=== PATIENT | female | born 2000 | race Caucasian/White ===

== ENCOUNTER 2024-09-15 05:36 | Inpatient (IN) | payer OTHER ==
[~2024-09-15] VITALS: Ht 167.6 cm; Wt 3.6 kg
[2024-09-15] VITALS (7 sets, daily range): BP systolic 111–131; BP diastolic 63–80
[2024-09-15] MEDS ORDERED: FE C TABLET1 EACH PO (06:32)
[2024-09-15] MEDS ORDERED: PRENATABS RX T1 EACH PO (06:32)
[2024-09-15 07:04] LABS: BASO % 0.3 % (0.1-1.2); EOS # 0.15 (0.04-0.54); EOS % 1.4 % (0.7-7.0); LYMPH # 1.74 (1.18-3.74); LYMPH % 16.4 % (19.3-53.1); MEAN PLATELET VOLUME 9.50 fl (9.4-12.4); MONO # 0.94 (0.24-0.82); MONO % 8.8 % (4.7-12.5); NEUT # 7.65 (1.56-6.13); NEUT % 72.0 % (34.0-71.1); RED CELL DISTRIBUTION WIDTH 13.9 % (11.6-14.4)
[2024-09-15 07:07] LABS: URINE APPEARANCE Clear; URINE BILIRRUBIN Negative (NEGATIVE); URINE BLOOD Negative; URINE COLOR Yellow; URINE KETONE Negative (NEGATIVE); URINE LEUKOCYTE Small; URINE NITRATE Negative; URINE PROTEIN Negative (NEGATIVE)
[2024-09-15 07:11] LABS: URINE BACTERIA 9557.9 uL (0.0-1933); URINE EPITHELIAL CELLS 43.5 uL (0.0-38.8); URINE RBC 7.6 uL (0.0-20.8); URINE WBC 213.5 uL (0.0-23.2)
[2024-09-15 07:36] LABS: INR 0.94
[2024-09-15 07:38] LABS: URINE UROBILINOGEN 1.0 E.U./dl
[2024-09-15 07:54] LABS: URINE CAST 1.17 uL (0.0-1.40); URINE GLUCOSE 100 MG/DL (NEGATIVE)
[2024-09-15 07:56] LABS: URINE CRYSTALS FEW /HPF
[2024-09-15 08:00] LABS: ALT/SGPT 18.0 U/L (12-78); AST/SGOT 21.0 U/L (15-37); BILIRUBIN TOTAL 0.24 mg/dL (0.3-1.2); BUN CREA RATIO 22.0 (7.0-25.0); CREATININE SERUM 0.45 mg/dL (0.55-1.02); GFR 171.18; GLOBULINA 3.2 G/DL (2.4-3.5); GLUCOSE FASTING 137.0 mg/dL (65-100); OSMOLALITY SERUM 284.0 MOSM/KG (275-295)
[2024-09-15] MEDS ORDERED: MISOPROSTOL 25 MCG/4 ML GEL.W.APPL VAG ONE ×2 (09:00→15:00)
[2024-09-15] MEDS ORDERED: OXYTOCIN 500 ML IV SCH (17:15)
[2024-09-15] MEDS ORDERED: MORPHINE SULFATE 4 MG/ML VIAL IV ONE (20:30)
[2024-09-16] MEDS ORDERED: ONDANSETRON HCL 2 MG/ML VIAL IV ONE (02:30)
[2024-09-16] MEDS ORDERED: MORPHINE SULFATE 4 MG/ML VIAL IV PRN (02:30)
[2024-09-16 03:42] VITALS: BP 108/62
[2024-09-16] MEDS ORDERED: CEFAZOLIN SODIUM 1,000 MG VIAL IV SCH (06:30)
[2024-09-16] MEDS ORDERED: KETOROLAC TROMETHAMINE 60 MG VIAL IM ONE ×2 (08:15→11:35)
[2024-09-16] MEDS ORDERED: MORPHINE SULFATE 4 MG/ML CARTRIDGE IV SCH (09:00)
[2024-09-16] MEDS ORDERED: DOCUSATE SODIUM 100MG CAP PO SCH (09:00)
[2024-09-16] MEDS ORDERED: SIMETHICONE 125 MG CAPSULE PO SCH (09:00)
[2024-09-16] MEDS ORDERED: OXYTOCIN 20 UNITS/1000ML RL PIGGYBAG IV ONE (09:15)
[2024-09-16] MEDS ORDERED: ERYTHROMYCIN BASE OPHT 1GM EACH TUBE OP ONE (09:15)
[2024-09-16] MEDS ORDERED: MORPHINE SULFATE 4 MG/ML VIAL IV ONE ×2 (09:55→10:25)
[2024-09-16 12:15] VITALS: BP 110/67
[2024-09-16 12:49] LABS: BASO % 0.1 % (0.1-1.2); EOS # 0.00 (0.04-0.54); EOS % 0.0 % (0.7-7.0); LYMPH # 1.16 (1.18-3.74); LYMPH % 6.2 % (19.3-53.1); MEAN PLATELET VOLUME 9.30 fl (9.4-12.4); MONO # 1.39 (0.24-0.82); MONO % 7.5 % (4.7-12.5); NEUT # 15.91 (1.56-6.13); NEUT % 85.6 % (34.0-71.1); RED CELL DISTRIBUTION WIDTH 14.0 % (11.6-14.4)
[2024-09-16 17:07] VITALS: BP 108/62
[2024-09-16] MEDS ORDERED: OxyCODONE HCL 5 MG TABLET (ROXICODONE) PO SCH (20:00)
[2024-09-16 23:57] VITALS: BP 108/72
[2024-09-17 08:36] VITALS: BP 109/74
[2024-09-17] MEDS ORDERED: PNV,CALCIUM 72/IRON/FOLIC ACID 1 TAB TABLET PO SCH (11:41)
[2024-09-17] MEDS ORDERED: KETOROLAC TROMETHAMINE 10 MG TABLET PO SCH (12:00)
[2024-09-17] MEDS ORDERED: ACETAMINOPHEN 325 MG TABLET PO SCH (14:00)
[2024-09-17 16:00] VITALS: BP 126/80
[2024-09-18] VITALS: BP 105/68
[2024-09-18 08:54] VITALS: BP 100/66
[2024-09-18] MEDS ORDERED: SODIUM CL 0.9% 25 ML IV.SOLN. IV PUSH SCH (11:15)
[2024-09-18] MEDS ORDERED: BUTALB-ACETAMI1 EACH PO (15:49)
[2024-09-18 16:00] VITALS: BP 115/78
== END 2024-09-18 17:29 | disposition home or self-care (01) | DRG 788 ==
LOC: LDR 05:36 → O/R 09-16 07:28 → OB/GYN 09-16 10:42
PROVIDERS: ADMIT Specialist; ATTEND Specialist
PROC: 4A1HXCZ Monitoring of Products of Conception, Cardiac Rate, External Approach (ICD-10-PCS; 2024-09-15)
PROC: 3E0P7VZ Introduction of Hormone into Female Reproductive, Via Natural or Artificial Opening (ICD-10-PCS; 2024-09-15)
PROC: 3E033VJ Introduction of Other Hormone into Peripheral Vein, Percutaneous Approach (ICD-10-PCS; 2024-09-16)
PROC: 10D00Z1 Extraction of Products of Conception, Low, Open Approach (ICD-10-PCS; principal; 2024-09-16 07:00)
DX: O82 Encounter for cesarean delivery without indication (principal); O62.1 Secondary uterine inertia; Z3A.39 39 weeks gestation of pregnancy; Z37.0 Single live birth